=== PATIENT | female | born 1985 | race African-American/Black ===

== ENCOUNTER 2024-07-18 09:48 | Inpatient (IN) | payer OTHER ==
[~2024-07-18] VITALS: Ht 165.1 cm; Wt 63.0 kg
[2024-07-18] MEDS ORDERED: Metoclopramide HCl 5MG / ML 2ML Vial IV ONE (10:10)
[2024-07-18] MEDS ORDERED: DiphenhydrAMINE HCl 50 MG/ML 1ML Vial IV ONE (10:10)
[2024-07-18] MEDS ORDERED: NS 1,000 ML IV SCH (10:10)
[2024-07-18 10:37] LABS: BASOPHILS ABSOLUTE AUTO 0.04 K/mm3 (0.00-0.23); BASOPHILS PERCENT AUTO 0 % (0-2); EOSINOPHILS PERCENT AUTO 0 % (0-6); Hematocrit 34.5 % (33.0-51.0); Hemoglobin 11.7 g/dL (11.5-16.0); IMMATURE GRAN ABSOLUTE AUTO 0.09 K/mm3 (0.00-0.10); IMMATURE GRAN PERCENT AUTO 1 % (0-1); LYMPHOCYTES PERCENT AUTO 9 % (21-46); MONOCYTES ABSOLUTE AUTO 0.54 K/mm3 (0.16-1.47); MONOCYTES PERCENT AUTO 3 % (4-13); Mean Corpuscular HGB 29.3 pg (26.0-34.0); Mean Corpuscular HGB Conc 33.9 g/dL (31.5-36.5); Mean Corpuscular Volume 86 fL (80-100); Mean Platelet Volume 9.7 fL (9.1-12.4); NEUTROPHILS ABSOLUTE AUTO 15.25 K/mm3 (1.96-9.15); NEUTROPHILS PERCENT AUTO 88 % (41-73); Platelet Count 420 K/mm3 (150-400); RDW Coefficient Variation 14.2 % (11.7-14.2); RDW Standard Deviation 44.4 fL (35.1-46.3); White Blood Cell Count 17.42 K/mm3 (4.00-11.30)
[2024-07-18 10:37] LABS: Source, Urine Clean Catch
[2024-07-18 10:42] LABS: Appearance, Urine Hazy (Clear); Bilirubin, Urine Neg (Neg); Blood, Urine 5+ (Neg); Color, Urine Yellow (P-Yellow); Glucose Qualitative, Urine Neg (Neg); Ketones, Urine 4+ (Neg); Leukocyte Esterase, Urine Neg (Neg); Nitrite, Urine Neg (Neg); Protein, Urine 3+ (Neg); Specific Gravity, Urine 1.025 (1.003-1.022); Urobilinogen, Urine NORM (Normal)
[2024-07-18 10:49] LABS: Amorphous Light (0-Heavy); White Blood Cells, Urine 0-2 /hpf (0-5)
[2024-07-18 10:50] LABS: Bacteria Many /hpf; Squamous Epithelial Cells Many /hpf (Few)
[2024-07-18 10:58] LABS: Albumin/Globulin Ratio 0.9 (0.8-1.8); Bilirubin, Total 0.4 mg/dL (0.1-1.0); Bun/Creatinine Ratio 28.3 (12.0-20.0); Calcium, Blood 9.1 mg/dL (8.5-10.1); Creatinine, Blood 0.53 mg/dL (0.40-1.00); Globulin, Blood 4.6 g/dL (2.2-4.0); Potassium, Blood 4.3 mmol/L (3.5-5.5); Total Protein, Blood 8.6 g/dL (6.4-8.2)
[2024-07-18] MEDS ORDERED: D5W-1/2NS 500 ML IV SCH (13:40)
[2024-07-18] MEDS ORDERED: Promethazine HCl 25 MG Tab PO ONE (13:40)
[2024-07-18] MEDS ORDERED: D5W-1/2NS 1,000 ML IV SCH ×3 (13:55→23:35)
[2024-07-18] MEDS ORDERED: Acetaminophen 500 MG Tab PO ONE (14:15)
[2024-07-18] MEDS ORDERED: MethylPREDNISolone Sod Succ 125 MG Vial IV ONE (18:50)
[2024-07-18] MEDS ORDERED: Ondansetron HCl 2 MG / ML 2ML Vial IV ONE ×2 (18:50)
[2024-07-18 21:35] VITALS: BP 108/66
[2024-07-18] MEDS ORDERED: Acetaminophen 325 MG TABLET PO PRN (23:15)
[2024-07-18] MEDS ORDERED: Metoclopramide HCl 5MG / ML 2ML Vial IV PRN (23:20)
[2024-07-18] MEDS ORDERED: Promethazine HCl 12.5 MG Supp PR PRN (23:20)
--- NOTE | 2024-07-18 23:33 | NUR ---
NEW T-ORDERS RECEIVED FROM AT HS: - PHENERGAN 12.5MG PER RECTUM Q6HRS PRN - REGLAN 10MG IV Q6HRS PRN - TYLENOL 650MG PO Q6HRS PRN - D5 1/2NS 125MLS/HR IV CONTINUOUS - ACTIVITY TOLERATED - SCD'S PROPHYLAXIS BILATERAL LOWER EXTREMETIES, WHILE IN BED - CLEAR LIQUID DIET, CRACKERS OK - BASIC METABOLIC PANEL 07/19/24 AM - BETA HCG QUANTATIVE SERUM 07/19/24 AM ENTERED TO [employer]. TRUCK DRIVER FLATBED NOTIFIED.
--- NOTE | 2024-07-19 02:49 | NUR ---
SHIFT SUMMARY/ED ADMISSION TO MEDICAL FLOOR RM#[id number] @[id number] PT ARRIVED IN A GURNEY TO THE MEDICAL FLOOR. PT TRANSFERRED INDEPENDENTLY WITH SBA TO THE HOSPITAL BED. PT BROUGHT ALL HER BELONINGS WITH HER. CHARGE NURSE VENKATA COMPLETED THE ADMISSION ASSESSMENT, SKIN CHECK WITH THIS PLASTICS PRODUCTION MACHINE OPERATOR. PT IS A/O X4, ABLE TO MAKE HER NEEDS KNOWN AND COOPERATIVE WITH CARE. PT REPORTS 8/10 H/A. NEW 0RDER FOR TYLENOL PO PRN ADMINISTERED ORDERED. PT CONTINUES ON D5 1/2NS @125MLS/HR. THESE ORDERS RECEIVED OVER THE PHONE FROM DR. KIM (THIS PLASTICS PRODUCTION MACHINE OPERATOR CONTACTED THE DR). PT DENIES VOMITING AT HS AND T/O THIS SHIFT. PT CONTINUES TO HAVE SLIGHT NAUSEA. DIET ORDER IS CLEAR LIQUIDS, AND CRACKERS OK PER DR. KIM. PT REQUESTED CRACKERS AND ICE CHIPS. PT TOLERATED WELL. NO ACUTE EVENTS SINCE ADMISSION. PT DENIES VAGINAL BLEEDING OR SPOTTING. LABS THIS MORNING, BASIC METABOLIC PANEL AND HCG. ORIENTED TO CALL LIGHT, SMOKING POLICY, AND FALL PRECAUTIONS. ENCOURAGED PT TO USE THE CALL LIGHT WHEN USING THE RESTROOM. BED AT THE LOWEST POSITION, CALL LIGHT W/I REACH. VSS.
[2024-07-19 04:21] VITALS: BP 103/68
[2024-07-19 06:54] LABS: Bun/Creatinine Ratio 13.4 (12.0-20.0); Calcium, Blood 8.6 mg/dL (8.5-10.1); Creatinine, Blood 0.52 mg/dL (0.40-1.00); Potassium, Blood 3.9 mmol/L (3.5-5.5)
[2024-07-19 07:32] VITALS: BP 101/64
[2024-07-19 15:14] VITALS: BP 115/85
--- NOTE | 2024-07-19 16:50 | NUR ---
SHIFT SUMMARY PT AOX4, COOPERATIVE, ABLE TO MAKE NEEDS KNOWN. PT IS RUNNING D51/2NS AT 125ML/HR. CLEAR LIQUID DIET, ABLE TO HAVE CRACKERS. IND IN ROOM TO VOID. TOLERATING MEDICATION APPROPRIATELY. CONTINUING STEROIDS FOR INTRACTABLE NAUSEA WHICH WAS COMPLAINED ABOUT ONCE THIS SHIFT. BED IN LOWEST POSITION, CALL LIGHT WITHIN REACH.
[2024-07-19] MEDS ORDERED: MethylPREDNISolone Sod Succ 125 MG Vial IV ONE (18:00)
[2024-07-19 19:01] VITALS: BP 94/61
[2024-07-20 04:56] VITALS: BP 116/68
--- NOTE | 2024-07-20 05:54 | NUR ---
PT A&OX4, INDEPENDENT IN RM. PT REPORTED AT ONE TIME SCNAT MENSTRAUL SPOTTING NOTED WHEN GOING TO THE BATHROOM ONCE. PT C/O CLINE AND WAS GIVEN TYLENOL DURING SHIFT. SLEPT FOR A FEW HOURS DURING THIS SHIFT. PPP, HRR, PERRL, BTX4, SBD SOFT NON TENDER. SKIN DRY AND INTACT, PT C/O ABSCESS TO RLE THAT IS PAINFUL.
[2024-07-20 07:32] VITALS: BP 93/57
[2024-07-20] MEDS ORDERED: MIRT15 PO (14:21)
[2024-07-20] MEDS ORDERED: Seroquel Xr50 MG PO (14:22)
[2024-07-20 15:22] VITALS: BP 107/64
--- NOTE | 2024-07-20 18:44 | NUR ---
SHIFT SUMMARY PT AOX4, COOPERATIVE, ABLE TO MAKE NEEDS KNOWN. PT HAS NOT HAD ANY COMPLAINTS TODAY. DIET ADVANCED TO FULL LIQUID. RUNNING D51/2NS CURRENTLY. POSSIBLE DC TOMORROW. BED IN LOWEST POSITION, CALL LIGHT WITHIN REACH.
[2024-07-20] MEDS ORDERED: MethylPREDNISolone Sod Succ 125 MG Vial IV SCH (19:00)
[2024-07-20 20:49] VITALS: BP 92/62
--- NOTE | 2024-07-21 05:12 | NUR ---
PT C/O NAUSEA AFTER EATING FULL LIQUID DIET. REGLAN GIVEN RX. PT FELL ASLEEP SOON AFTER. IVF INFUSION WITHOUT COMPLICATIONS. PT A&OX4, INDEPENDENT IN RM.
[2024-07-21 06:03] VITALS: BP 88/48
[2024-07-21 06:17] VITALS: BP 108/75
[2024-07-21 07:25] VITALS: BP 100/59
--- NOTE | 2024-07-21 15:28 | NUR ---
HCG PT DECLINED HCG LEVEL. SHE DOESN'T WANT TO WAIT LONGER TO GO HOME. CARE ONGOING.
[2024-07-21] MEDS ORDERED: ACET325 PO (15:35)
[2024-07-21] MEDS ORDERED: ONDA4 PO (15:35)
--- NOTE | 2024-07-21 15:54 | NUR ---
DISCHARGE DISCHARGE HOME HARD SCRIPTS WROTE AND GIVEN TO PATIENT. IV REMOVED WITH CANNULA INTACT. COBAN/GAUZE APPLIED TO IV SITE. PT ESCORTED OUT VIA W/C AND SPOUCE IN ATTENDANCE. CARE ONGOING.
== END 2024-07-21 17:27 | disposition home or self-care (01) | DRG 832 ==
LOC: ER 09:48 → ERHOLD 09:49 → MEDS 21:21
PROVIDERS: Student in an Organized Health Care Education/Training Program; ADMIT Obstetrics & Gynecology
DX: O21.0 Mild hyperemesis gravidarum (principal); O99.321 Drug use complicating pregnancy, first trimester; F17.210 Nicotine dependence, cigarettes, uncomplicated; F10.10 Alcohol abuse, uncomplicated; F12.90 Cannabis use, unspecified, uncomplicated; O99.331 Smoking (tobacco) complicating pregnancy, first trimester; R51.9 Headache, unspecified; O26.891 Other specified pregnancy related conditions, first trimester; O99.311 Alcohol use complicating pregnancy, first trimester; Z88.0 Allergy status to penicillin; Z95.2 Presence of prosthetic heart valve; Z3A.01 Less than 8 weeks gestation of pregnancy
CPT/HCPCS: 36415; 71045; 76801; 76817; 80048; 80053; 81001; 81025; 83690; 84484; 84702; 85025; 87086; 93005; 93010; 96361; 96374; 96375; 99285-25; A9270; G0378; J1200; J2405; J2765; J2919; J7030; J7042